=== PATIENT | male | born 1985 | race Caucasian/White ===

== ENCOUNTER 2016-07-19 12:15 | Emergency (ER) | payer BC ==
[~2016-07-19] VITALS: Ht 182.9 cm; Wt 140.9 kg
[~2016-07-19 12:15] MED LIST: CARAFATE 1GM1 G PO; CEPHALEXIN250 M1 PO; CLARITON D; CLEOCIN HCL300 MG PO; LEVAQUIN 5500 MG/TA1 PO; LEVAQUIN 750MG750 M1 PO; LOTREL 5/20 CAP1 CAP PO; NORCO 325 MG-51 TAB PO; NORCO 325 MG-7.1 TAB PO; NORVASC2.5 MG PO; PEPTO BISM262 MG/15 PO; PREDNISONE20 MG PO; PRIL40 PO; PRILOSEC 20MG20 MG PO; PROBIOTIC-MAJOR PO; REGLAN 10MG10 MG/TAB PO; TYLENOL W/COD1 UDTAB PO; ULTRAM 50MG TAB50 MG PO; ZOFRAN8 MG PO; ZYRTEC 10MG10 MG PO
[2016-07-19 12:18] VITALS: TEMP 98.3
[2016-07-19] MEDS ORDERED: VTAMINC250TA (12:48)
[2016-07-19] MEDS ORDERED: NATURAL IRON65 MG PO (12:49)
[2016-07-19] MEDS ORDERED: [UNRECOGNIZED DRUG - OTHER] (12:50)
[2016-07-19 13:29] LABS: BASO # 0.1 (0.0-0.2); BASO % 0.3 % (0.0-2.0); EOS # 0.1 (0.0-0.7); EOS % 0.7 % (0-4.0); GRAN # 18.5 (1.4-6.5); GRAN % 88.8 % (42.2-75.2); HEMATOCRIT 47.6 % (42.0-52.0); HEMOGLOBIN 16.3 g/dl (13.5-18.0); LYMPH % 4.8 % (20.0-51.0); MEAN CELL VOLUME 82 fl (80.0-100.0); MEAN CORPUSCULAR HEMOGLOBIN 28 pg (27.0-31.0); MEAN CORPUSCULAR HGB CONC 34 g/dl (33.0-37.0); MEAN PLATELET VOLUME 11.5 fl (7.4-10.4); MONO % 4.7 % (1.7-9.3); PLATELET COUNT 331 K/mm3 (130-400)
[2016-07-19 13:31] LABS: WHITE BLOOD COUNT 20.8 K/mm3 (4.8-10.8)
[2016-07-19 13:45] LABS: ADJUSTED CALCIUM 9.1 mg/dL (8.4-10.2); ALBUMIN 4.3 gm/dL (3.5-5.0); BILIRUBIN,TOTAL 1.2 mg/dL (0.0-1.0); CALCIUM 9.3 mg/dL (8.4-10.2); CREATININE, serum 0.89 mg/dL (0.66-1.25); POTASSIUM 4.3 mmol/L (3.4-5.0); TOTAL PROTEIN 7.2 gm/dL (6.4-8.2)
[2016-07-19] MEDS ORDERED: FLAGYL500 MG PO (15:23)
[2016-07-19] MEDS ORDERED: CIPRO 500MG TA500 MG PO (15:23)
[2016-07-19 15:34] VITALS: BP 148/90; PULSE 98
[2016-07-19 15:35] LABS: PH 7 (5-8); SQUAMOUS EPITHELIAL None Seen /hpf; URINE APPEARANCE Clear; URINE BACTERIA None Seen /hpf; URINE BILIRUBIN Negative (NEGATIVE); URINE BLOOD Negative (NEGATIVE); URINE COLOR Yellow; URINE GLUCOSE Negative (NEGATIVE); URINE KETONE Negative (NEGATIVE); URINE RBC 0-2 /hpf; URINE UROBILINOGEN Negative (NEGATIVE); URINE WBC 0-2 /hpf
== END 2016-07-19 15:35 | disposition home or self-care (01) ==
LOC: COL.ER 12:15
PROVIDERS: Physician Assistant
DX: K52.9 Noninfective gastroenteritis and colitis, unspecified (principal)
CPT/HCPCS: J2405; J7030

== ENCOUNTER 2020-04-05 23:51 | Emergency (ER) | payer BC ==
[~2020-04-05] VITALS: Ht 182.9 cm; Wt 145.5 kg
[~2020-04-05 23:51] MED LIST changes: +CIPRO 500MG TA500 MG PO; +FLAGYL500 MG PO; +NATURAL IRON65 MG PO; +VTAMINC250TA; +[UNRECOGNIZED DRUG - OTHER]
[2020-04-06 00:05] VITALS: TEMP 97.6
[2020-04-06 00:38] LABS: BASO # 0.1 (0.0-0.2); BASO % 0.5 % (0.0-2.0); EOS # 0.3 (0.0-0.7); EOS % 3.1 % (0-4.0); GRAN # 5.8 (1.4-6.5); GRAN % 57.5 % (42.2-75.2); HEMATOCRIT 43.2 % (42.0-52.0); HEMOGLOBIN 14.5 g/dl (13.5-18.0); LYMPH # 3.1 (1.2-3.4); LYMPH % 30.2 % (20.0-51.0); MEAN CELL VOLUME 83 fl (80.0-100.0); MEAN CORPUSCULAR HEMOGLOBIN 28 pg (27.0-31.0); MEAN CORPUSCULAR HGB CONC 34 g/dl (33.0-37.0); MEAN PLATELET VOLUME 11.3 fl (7.4-10.4); MONO # 0.8 (0.1-0.6); MONO % 8.3 % (1.7-9.3); PLATELET COUNT 334 K/mm3 (130-400); RED BLOOD COUNT 5.18 M/mm3 (4.20-5.60); REDCELL DISTRIBUTION WIDTH-CV 12.9 % (11.5-14.5)
[2020-04-06 00:55] LABS: ALANINE AMINOTRANSFERASE 33 U/L (4-49); ALBUMIN 4.4 gm/dL (3.5-5.0); ALKALINE PHOSPHATASE 76 U/L (50-136); ANION GAP 10 mmol/L (7-16); AST,SGOT 25 U/L (15-37); BILIRUBIN,TOTAL 0.6 mg/dL (0.0-1.0); BLOOD UREA NITROGEN 16 mg/dL (9-20); CALCIUM 9.2 mg/dL (8.4-10.2); CARBON DIOXIDE 28 mmol/L (22-30); CHLORIDE 103 mmol/L (98-107); GLUCOSE 117 mg/dL (74-106); POTASSIUM 4.1 mmol/L (3.4-5.0); SODIUM 141 mmol/L (137-145); TOTAL PROTEIN 7.4 gm/dL (6.4-8.2)
[2020-04-06 01:16] LABS: TROPONIN-I < 0.012 ng/mL (0.000-0.035)
[2020-04-06 04:30] VITALS: BP 156/93; PULSE 81
== END 2020-04-06 04:30 | disposition home or self-care (01) ==
LOC: COL.ER 23:51
PROVIDERS: Emergency Medicine
DX: I10 Essential (primary) hypertension (principal); Z91.19 Patient's noncompliance with other medical treatment and regimen; Z88.1 Allergy status to other antibiotic agents; Z88.2 Allergy status to sulfonamides; Z87.891 Personal history of nicotine dependence